=== PATIENT | male | born 1990 | race Caucasian/White ===

== ENCOUNTER 2019-02-17 21:47 | Emergency (ER) | payer SELFPAY ==
[2019-02-18 00:04] VITALS: BP 107/63
== END 2019-02-18 00:16 | disposition home or self-care (01) ==
LOC: ED 21:47
DX: S61.214A Laceration without foreign body of right ring finger without damage to nail, initial encounter (principal); S61.216A Laceration without foreign body of right little finger without damage to nail, initial encounter; F90.9 Attention-deficit hyperactivity disorder, unspecified type; F17.210 Nicotine dependence, cigarettes, uncomplicated; Z23 Encounter for immunization; Z98.890 Other specified postprocedural states; W26.0XXA Contact with knife, initial encounter; Y92.009 Unspecified place in unspecified non-institutional (private) residence as the place of occurrence of the external cause
CPT/HCPCS: 90715

== ENCOUNTER 2019-02-27 09:48 | Emergency (ER) | payer SELFPAY ==
[2019-02-27 10:25] VITALS: BP 124/74
== END 2019-02-27 10:32 | disposition home or self-care (01) ==
LOC: ED 09:48
DX: S61.216D Laceration without foreign body of right little finger without damage to nail, subsequent encounter (principal)

== ENCOUNTER 2022-04-12 17:38 | Emergency (ER) | payer SELFPAY ==
[~2022-04-12] VITALS: Ht 188 cm; Wt 79.5 kg
[2022-04-12 19:40] VITALS: BP 127/84
[2022-04-13 04:20] LABS: URINE APPEARANCE CLOUDY; URINE COLOR YELLOW
[2022-04-13 04:21] LABS: URINE BILIRUBIN NEGATIVE (NEGATIVE); URINE BLOOD TRACE (NEGATIVE); URINE GLUCOSE NEGATIVE (NEGATIVE); URINE KETONE NEGATIVE (NEGATIVE); URINE LEUKOCYTE ESTERASE 2+ (NEGATIVE); URINE NITRATE NEGATIVE (NEGATIVE); URINE PROTEIN(semi-quant) 1+ (NEGATIVE); URINE UROBILINOGEN NORMAL (NORMAL); URINE WBC >50 /hpf (0-3)
--- NOTE | 2022-04-14 14:23 | NUR ---
Pt's STD testing positive for gonoorrhoeae. This RN notifies Jeni Ng APRN who stated pt has recieved appropriate treatment. This RN then attempts to notify pt of these results however pt does not answer on this attempt to contact. Pt's voicemail is not set up so no voicemail is left at this time.
== END 2022-04-12 19:40 | disposition home or self-care (01) ==
LOC: ED 17:38
PROVIDERS: Nurse Practitioner
DX: R36.9 Urethral discharge, unspecified (principal); R30.0 Dysuria; Z28.310 Unvaccinated for COVID-19
CPT/HCPCS: J0696